=== PATIENT | female | born 1990 | race Caucasian/White ===

== ENCOUNTER 2017-06-18 19:29 | Inpatient (IN) | payer SELFPAY ==
[~2017-06-18] VITALS: Ht 160 cm; Wt 64.4 kg
[2017-06-18] MEDS ORDERED: methylPREDNISolone SOD SUCC 125 MG/2ML VIAL ONE (19:51)
[2017-06-18] MEDS ORDERED: diphenhydrAMINE HCL 50 MG/ML VIAL ONE (19:51)
[2017-06-18] MEDS ORDERED: FAMOTIDINE/PF INJ 20 MG/2 ML VIAL IV ONE ×2 (19:51→20:00)
[2017-06-18 19:53] LABS: BASOPHILS # (AUTO) 0.6 /CMM (0.0-0.2); BASOPHILS % (AUTO) 3.5 % (0.0-2.0); EOSINOPHILS # (AUTO) 0.1 /CMM (0.0-0.7); EOSINOPHILS % (AUTO) 0.4 % (0.0-6.0); HEMATOCRIT 42 % (33-45); HEMOGLOBIN 13.9 g/dL (11.5-14.8); LYMPHOCYTES # (AUTO) 0.7 /CMM (0.8-4.8); LYMPHOCYTES % (AUTO) 3.7 % (20.0-44.0); MEAN CORPUSCULAR HEMOGLOBIN 27 PG (26.0-33.0); MEAN CORPUSCULAR HGB CONC 33 g/dl (31.0-36.0); MEAN CORPUSCULAR VOLUME 81 fL (82-100); MONOCYTES # (AUTO) 0.6 /CMM (0.1-1.30); MONOCYTES % (AUTO) 3.5 % (2.0-12.0); NEUTROPHILS % (AUTO) 88.9 % (43.0-81.0); PLATELET COUNT (AUTO) 110 /CMM (150-450); RDW COEFFICIENT OF VARIATION 14.3 (11.5-15.0); RED BLOOD CELL COUNT(AUTO) 5.21 MIL/uL (4.0-5.2)
[2017-06-18] MEDS ORDERED: IV NS 0.9% 1,000 ML BAG IV ONE ×3 (20:00→22:00)
[2017-06-18] MEDS ORDERED: methylPREDNISolone SOD SUCC 125 MG/2ML VIAL IV ONE (20:00)
[2017-06-18] MEDS ORDERED: diphenhydrAMINE HCL 50 MG/ML VIAL IV ONE (20:00)
[2017-06-18 20:03] LABS: CALCIUM, SERUM 7.6 mg/dL (8.5-10.1); CREATININE 1.6 mg/dL (0.6-1.3); POTASSIUM 3.8 mmol/L (3.5-5.1)
[2017-06-18 20:42] LABS: ALBUMIN 2.4 g/dL (3.4-5.0); BILIRUBIN,DIRECT 0.4 mg/dL (0.0-0.2); BILIRUBIN,TOTAL 1.2 mg/dL (0.2-1.0); TOTAL PROTEIN, SERUM 6.8 g/dL (6.4-8.2)
[2017-06-18] MEDS ORDERED: PIPERACILLIN /TAZOBACTAM 3.375 G in IV D5W 50 ML IV ONE (21:00)
[2017-06-18] MEDS ORDERED: VANCOMYCIN 1 GM in IV D5W 250 ML IV ONE (21:00)
[2017-06-18] MEDS ORDERED: VANCOMYCIN 1 GM VIAL ONE (21:06)
[2017-06-18 21:07] LABS: BAND % (MANUAL) 19 % (0.0-5.0); EOSINOPHILS % (MANUAL) 1 % (0-4); LYMPHOCYTES % (MANUAL) 7 % (16-48); MONOCYTES % (MANUAL) 3 % (0-11.0); NEUTROPHILS % (MANUAL) 68 (42-76); REACTIVE LYMPHOCYTES 2 % (0-0)
[2017-06-18 21:15] LABS: APPEARANCE,URINE Slightly Cloudy (CLEAR); BILIRUBIN,URINE SMALL (NEGATIVE); BLOOD, URINE Trace-intact Ery/uL (NEGATIVE); COLOR,URINE Dark (YELLOW); KETONES,URINE Negative (NEGATIVE); LEUKOCYTE ESTERASE ,URINE Small (NEGATIVE); NITRITE, URINE Negative (NEGATIVE); PH,URINE 5.5 (5.0-8.0); PROTEIN,URINE 30 mg/dl (NEGATIVE); UGLUCOSE Negative (NEGATIVE)
[2017-06-18] MEDS ORDERED: CEFEPIME 1 GM in IV D5W 50 ML IV ONE (21:30)
[2017-06-18 21:36] LABS: BACTERIA,URINE Few /HPF (None Seen); SQUAMOUS EPITHELIAL CELL,UR Rare /HPF (None Seen)
[2017-06-18] MEDS ORDERED: IV NS 0.9% 1,000 ML IV PRN (21:44)
[2017-06-18] MEDS ORDERED: Z GUARD REMEDY 2 OZ OINT TP PRN (22:00)
[2017-06-18] MEDS ORDERED: MAGNESIUM HYDROXIDE 30 ML UDC PO PRN (22:00)
[2017-06-18] MEDS ORDERED: ONDANSETRON HCL/PF 4 MG/2 ML VIAL IVP PRN (22:00)
[2017-06-18] MEDS ORDERED: MAG HYDROX/AL HYDROX/SIMETH 30 ML UDC PO PRN (22:00)
[2017-06-18] MEDS ORDERED: CEFEPIME 1 GM VIAL ONE (22:14)
[2017-06-18 22:40] VITALS: BP 96/52
[2017-06-18] MEDS ORDERED: MORPHINE SULFATE INJ 2 MG/ML DISP.SYRIN ONE (23:01)
[2017-06-18] MEDS: MORPHINE SULFATE INJ 2 MG/ML DISP.SYRIN IV PRN (23:05)
[2017-06-19] VITALS: BP 90/52
[2017-06-19] MEDS ORDERED: IV NS 0.9% 500 ML IV ONE (03:00)
[2017-06-19 04:00] VITALS: BP 92/62
[2017-06-19] MEDS ORDERED: MORPHINE SULFATE INJ 2 MG/ML DISP.SYRIN ONE (05:20)
[2017-06-19] MEDS ORDERED: CEFEPIME 1 GM VIAL ONE (05:31)
[2017-06-19] MEDS: MORPHINE SULFATE INJ 2 MG/ML DISP.SYRIN IV PRN ×3 (05:36→20:22)
[2017-06-19] MEDS: CEFEPIME 2 GM in IV D5W 100 ML IV SCH ×3 (05:36→20:22)
[2017-06-19] MEDS: IV NS 0.9% 1,000 ML IV PRN ×2 (05:38→16:28)
[2017-06-19 06:34] LABS: HEMATOCRIT 30 % (33-45); LYMPHOCYTES # (AUTO) 0.8 /CMM (0.8-4.8); LYMPHOCYTES % (AUTO) 4.3 % (20.0-44.0); MEAN CORPUSCULAR HEMOGLOBIN 28 PG (26.0-33.0); MEAN CORPUSCULAR HGB CONC 34 g/dl (31.0-36.0); MEAN CORPUSCULAR VOLUME 82 fL (82-100); MONOCYTES # (AUTO) 0.5 /CMM (0.1-1.30); MONOCYTES % (AUTO) 2.6 % (2.0-12.0); NEUTROPHILS % (AUTO) 93.1 % (43.0-81.0); PLATELET COUNT (AUTO) 88 /CMM (150-450); RDW COEFFICIENT OF VARIATION 15.1 (11.5-15.0); RED BLOOD CELL COUNT(AUTO) 3.65 MIL/uL (4.0-5.2); WHITE BLOOD COUNT (AUTO) 18.3 K/uL (4.3-11.0)
[2017-06-19 07:01] LABS: ALBUMIN 1.8 g/dL (3.4-5.0); BILIRUBIN,TOTAL 0.5 mg/dL (0.2-1.0); CALCIUM, SERUM 7.1 mg/dL (8.5-10.1); CREATININE 0.9 mg/dL (0.6-1.3); MAGNESIUM 2.6 mg/dL (1.8-2.4); PHOSPHORUS 2.4 mg/dL (2.5-4.9); POTASSIUM 3.9 mmol/L (3.5-5.1); TOTAL PROTEIN, SERUM 5.5 g/dL (6.4-8.2)
[2017-06-19 07:03] LABS: THYROID STIMULATING HORMONE 0.287 uIU/mL (0.358-3.74)
[2017-06-19 08:00] VITALS: BP 84/55
[2017-06-19 08:35] LABS: BAND % (MANUAL) 25 % (0.0-5.0); LYMPHOCYTES % (MANUAL) 4 % (16-48); MONOCYTES % (MANUAL) 3 % (0-11.0); NEUTROPHILS % (MANUAL) 68 (42-76)
[2017-06-19] MEDS: PANTOPRAZOLE 40 MG TABLET.DR PO SCH (08:42)
[2017-06-19] MEDS: HYDROCODONE/APAP 5/325MG 1 EACH TABLET PO PRN ×2 (08:42→22:49)
[2017-06-19] MEDS ORDERED: FEE PK DOSING 1 MIN EA MC ONE (08:55)
[2017-06-19] MEDS: VANCOMYCIN 0.75 GM in IV D5W 250 ML IV SCH ×2 (11:23→16:28)
[2017-06-19 12:00] VITALS: BP 89/59
[2017-06-19 16:00] VITALS: BP 98/68
[2017-06-19] MEDS ORDERED: K PHOS NEUTRAL 250 MG TABLET PO ONE (16:00)
[2017-06-19 20:00] VITALS: BP 105/69
[2017-06-20] VITALS: BP 97/62
[2017-06-20] MEDS: LORAZEPAM INJ 2 MG/ML VIAL IV PRN ×3 (00:08→18:03)
[2017-06-20] MEDS: VANCOMYCIN 0.75 GM in IV D5W 250 ML IV SCH ×3 (00:18→17:08)
[2017-06-20] MEDS: MORPHINE SULFATE INJ 2 MG/ML DISP.SYRIN IV PRN ×3 (02:35→13:30)
[2017-06-20 04:00] VITALS: BP 111/73
[2017-06-20] MEDS: CEFEPIME 2 GM in IV D5W 100 ML IV SCH ×2 (05:02→13:25)
[2017-06-20] MEDS: HYDROCODONE/APAP 5/325MG 1 EACH TABLET PO PRN ×4 (05:02→20:56)
[2017-06-20] MEDS: IV NS 0.9% 1,000 ML IV PRN (05:03)
[2017-06-20 08:00] VITALS: BP 99/65
[2017-06-20] MEDS: PANTOPRAZOLE 40 MG TABLET.DR PO SCH (08:01)
[2017-06-20 08:09] LABS: HEMATOCRIT 27 % (33-45); HEMOGLOBIN 9.1 g/dL (11.5-14.8); LYMPHOCYTES # (AUTO) 1.3 /CMM (0.8-4.8); LYMPHOCYTES % (AUTO) 6.9 % (20.0-44.0); MEAN CORPUSCULAR HEMOGLOBIN 27 PG (26.0-33.0); MEAN CORPUSCULAR HGB CONC 33 g/dl (31.0-36.0); MEAN CORPUSCULAR VOLUME 82 fL (82-100); MONOCYTES # (AUTO) 0.5 /CMM (0.1-1.30); MONOCYTES % (AUTO) 2.4 % (2.0-12.0); NEUTROPHILS # (AUTO) 17.8 /CMM (1.8-8.9); NEUTROPHILS % (AUTO) 90.7 % (43.0-81.0); PLATELET COUNT (AUTO) 117 /CMM (150-450); RDW COEFFICIENT OF VARIATION 15.7 (11.5-15.0); RED BLOOD CELL COUNT(AUTO) 3.34 MIL/uL (4.0-5.2); WHITE BLOOD COUNT (AUTO) 19.6 K/uL (4.3-11.0)
[2017-06-20 08:23] LABS: CALCIUM, SERUM 7.1 mg/dL (8.5-10.1); CREATININE 0.8 mg/dL (0.6-1.3); PHOSPHORUS 2.6 mg/dL (2.5-4.9); POTASSIUM 4.1 mmol/L (3.5-5.1)
[2017-06-20 12:00] VITALS: BP_SYST 101; BP_DIAS 68; BP_DIAS 84
[2017-06-20] MEDS ORDERED: MORPHINE SULFATE INJ 2 MG/ML DISP.SYRIN IV PRN (15:30)
[2017-06-20] MEDS: MORPHINE SULFATE INJ 4 MG/ML DISP.SYRIN IV PRN ×2 (15:31→19:50)
[2017-06-20 16:00] VITALS: BP_SYST 102; BP_SYST 121; BP_DIAS 63; BP_DIAS 84
[2017-06-20 20:00] VITALS: BP 120/87
[2017-06-20] MEDS ORDERED: diphenhydrAMINE HCL 25 MG CAPSULE ONE (21:08)
[2017-06-20] MEDS: DIPHENHYDRAMINE HCL 12.5 MG/5 ML UDC PO PRN (21:16)
[2017-06-21] VITALS: BP 114/75
[2017-06-21] MEDS: LORAZEPAM INJ 2 MG/ML VIAL IV PRN ×3 (01:04→21:10)
[2017-06-21] MEDS: VANCOMYCIN 0.75 GM in IV D5W 250 ML IV SCH ×3 (01:04→16:45)
[2017-06-21] MEDS ORDERED: KEY,NONCONTROL,TO KEEP IN PYXI 1 EA MC ONE ×3 (01:35→01:45)
[2017-06-21] MEDS: HYDROCODONE/APAP 5/325MG 1 EACH TABLET PO PRN ×2 (01:38→18:46)
[2017-06-21] MEDS ORDERED: KETOROLAC TROMETHAMINE INJ 30 MG/ML VIAL ONE (02:09)
[2017-06-21] MEDS ORDERED: KETOROLAC TROMETHAMINE INJ 30 MG/ML VIAL IM ONE (02:30)
[2017-06-21 03:09] LABS: *NEISSERIA GONORRHOEAE NAA Negative (Negative)
[2017-06-21 04:00] VITALS: BP 122/75
[2017-06-21 04:09] LABS: CHLAMYDIA TRACHOMATIS NAA Positive (Negative)
[2017-06-21 08:00] VITALS: BP 131/77
[2017-06-21] MEDS: PANTOPRAZOLE 40 MG TABLET.DR PO SCH (09:10)
[2017-06-21] MEDS: MORPHINE SULFATE INJ 4 MG/ML DISP.SYRIN IV PRN ×4 (09:40→21:01)
[2017-06-21] MEDS ORDERED: FUROSEMIDE 20 MG/2 ML VIAL IV ONE (10:30)
[2017-06-21 10:41] LABS: CALCIUM, SERUM 7.3 mg/dL (8.5-10.1); CREATININE 0.8 mg/dL (0.6-1.3)
[2017-06-21] MEDS: ACETAMINOPHEN 325 MG TABLET PO PRN ×2 (11:14→20:58)
[2017-06-21 12:00] VITALS: BP_SYST 112; BP_DIAS 65; BP_DIAS 77
[2017-06-21 16:00] VITALS: BP 129/72
[2017-06-21 20:00] VITALS: BP 120/76
[2017-06-21] MEDS ORDERED: AZITHROMYCIN 250 MG TABLET PO ONE (21:00)
[2017-06-22] VITALS: BP 108/69
[2017-06-22] MEDS: VANCOMYCIN 0.75 GM in IV D5W 250 ML IV SCH ×3 (00:37→17:18)
[2017-06-22] MEDS: DIPHENHYDRAMINE HCL 12.5 MG/5 ML UDC PO PRN ×2 (00:41→08:54)
[2017-06-22] MEDS: HYDROCODONE/APAP 5/325MG 1 EACH TABLET PO PRN ×3 (00:41→20:24)
[2017-06-22] MEDS: MORPHINE SULFATE INJ 4 MG/ML DISP.SYRIN IV PRN ×5 (01:32→22:09)
[2017-06-22] MEDS: LORAZEPAM INJ 2 MG/ML VIAL IV PRN ×3 (03:33→20:25)
[2017-06-22 04:00] VITALS: BP 124/73
[2017-06-22] MEDS: ACETAMINOPHEN 325 MG TABLET PO PRN (06:26)
[2017-06-22 07:44] LABS: CALCIUM, SERUM 7.1 mg/dL (8.5-10.1); CREATININE 0.8 mg/dL (0.6-1.3); POTASSIUM 4.1 mmol/L (3.5-5.1)
[2017-06-22 08:00] VITALS: BP 119/76
[2017-06-22] MEDS: PANTOPRAZOLE 40 MG TABLET.DR PO SCH (08:47)
[2017-06-22 12:00] VITALS: BP 114/72
[2017-06-22 16:00] VITALS: BP 125/73
[2017-06-22] MEDS: NITROFURANTOIN/NITROFURAN MAC 100 MG CAPSULE PO SCH (17:19)
[2017-06-22 20:00] VITALS: BP 113/67
[2017-06-23] VITALS (7 sets, daily range): BP systolic 103–123; BP diastolic 65–76
[2017-06-23] MEDS: DIPHENHYDRAMINE HCL 12.5 MG/5 ML UDC PO PRN ×2 (00:02→14:39)
[2017-06-23] MEDS: ACETAMINOPHEN 325 MG TABLET PO PRN ×2 (00:03→21:43)
[2017-06-23] MEDS: VANCOMYCIN 0.75 GM in IV D5W 250 ML IV SCH ×2 (00:40→08:58)
[2017-06-23] MEDS: HYDROCODONE/APAP 5/325MG 1 EACH TABLET PO PRN ×3 (00:40→11:06)
[2017-06-23] MEDS: MORPHINE SULFATE INJ 4 MG/ML DISP.SYRIN IV PRN ×3 (04:23→19:53)
[2017-06-23] MEDS: LORAZEPAM INJ 2 MG/ML VIAL IV PRN ×2 (06:44→22:05)
[2017-06-23 07:04] LABS: BASOPHILS # (AUTO) 0.1 /CMM (0.0-0.2); BASOPHILS % (AUTO) 0.2 % (0.0-2.0); EOSINOPHILS # (AUTO) 0.4 /CMM (0.0-0.7); EOSINOPHILS % (AUTO) 1.8 % (0.0-6.0); HEMATOCRIT 31 % (33-45); HEMOGLOBIN 10.4 g/dL (11.5-14.8); LYMPHOCYTES # (AUTO) 3.1 /CMM (0.8-4.8); LYMPHOCYTES % (AUTO) 13.2 % (20.0-44.0); MEAN CORPUSCULAR HEMOGLOBIN 27 PG (26.0-33.0); MEAN CORPUSCULAR HGB CONC 34 g/dl (31.0-36.0); MEAN CORPUSCULAR VOLUME 81 fL (82-100); MONOCYTES # (AUTO) 1.2 /CMM (0.1-1.30); MONOCYTES % (AUTO) 5.2 % (2.0-12.0); NEUTROPHILS # (AUTO) 18.4 /CMM (1.8-8.9); NEUTROPHILS % (AUTO) 79.6 % (43.0-81.0); PLATELET COUNT (AUTO) 181 /CMM (150-450); RDW COEFFICIENT OF VARIATION 15.4 (11.5-15.0); RED BLOOD CELL COUNT(AUTO) 3.84 MIL/uL (4.0-5.2); WHITE BLOOD COUNT (AUTO) 23.1 K/uL (4.3-11.0)
[2017-06-23 07:11] LABS: CALCIUM, SERUM 7.6 mg/dL (8.5-10.1); CREATININE 0.8 mg/dL (0.6-1.3); POTASSIUM 4.5 mmol/L (3.5-5.1)
[2017-06-23] MEDS: NITROFURANTOIN/NITROFURAN MAC 100 MG CAPSULE PO SCH ×2 (08:57→20:54)
[2017-06-23] MEDS: PANTOPRAZOLE 40 MG TABLET.DR PO SCH (08:57)
[2017-06-23] MEDS: CLONIDINE HCL 0.3 MG/24H PTWK 1 EA PATCH TD SCH (14:39)
[2017-06-23] MEDS: METHADONE HCL 10 MG TABLET PO SCH (15:50)
[2017-06-23] MEDS: VANCOMYCIN 1 GM in IV D5W 250 ML IV SCH (16:05)
[2017-06-23] MEDS: OLANZAPINE 5 MG TABLET PO SCH (16:35)
[2017-06-23] MEDS: DIVALPROEX SODIUM 500 MG TABLET.DR PO SCH (16:35)
[2017-06-23 17:02] LABS: APPEARANCE,URINE CLEAR (CLEAR); BILIRUBIN,URINE NEGATIVE (NEGATIVE); BLOOD, URINE NEGATIVE Ery/uL (NEGATIVE); COLOR,URINE YELLOW (YELLOW); KETONES,URINE NEGATIVE (NEGATIVE); LEUKOCYTE ESTERASE ,URINE NEGATIVE (NEGATIVE); NITRITE, URINE NEGATIVE (NEGATIVE); PROTEIN,URINE NEGATIVE (NEGATIVE); UGLUCOSE NEGATIVE (NEGATIVE)
[2017-06-23 17:21] LABS: BACTERIA,URINE None seen /HPF (None Seen); RBC,URINE NONE SEEN /HPF (0-2); SQUAMOUS EPITHELIAL CELL,UR Few /HPF (None Seen); WBC,URINE 0-2 /HPF (0-3)
[2017-06-24] VITALS: BP 100/64
[2017-06-24] MEDS: VANCOMYCIN 1 GM in IV D5W 250 ML IV SCH ×3 (01:14→16:20)
[2017-06-24] MEDS: MORPHINE SULFATE INJ 4 MG/ML DISP.SYRIN IV PRN ×2 (02:41→18:28)
[2017-06-24 04:00] VITALS: BP 102/67
[2017-06-24] MEDS: ACETAMINOPHEN 325 MG TABLET PO PRN ×2 (04:40→18:46)
[2017-06-24] MEDS ORDERED: IBUPROFEN 600 MG TABLET PO ONE (06:42)
[2017-06-24 06:59] LABS: CALCIUM, SERUM 7.8 mg/dL (8.5-10.1); CREATININE 0.9 mg/dL (0.6-1.3); POTASSIUM 4.6 mmol/L (3.5-5.1)
[2017-06-24] MEDS ORDERED: IBUPROFEN 400 MG TABLET PO PRN (07:00)
[2017-06-24 08:00] VITALS: BP 97/77
[2017-06-24] MEDS: DIVALPROEX SODIUM 500 MG TABLET.DR PO SCH ×2 (08:33→16:19)
[2017-06-24] MEDS: OLANZAPINE 5 MG TABLET PO SCH ×2 (08:34→16:19)
[2017-06-24] MEDS: NITROFURANTOIN/NITROFURAN MAC 100 MG CAPSULE PO SCH ×2 (08:34→22:12)
[2017-06-24] MEDS: METHADONE HCL 10 MG TABLET PO SCH (08:34)
[2017-06-24] MEDS: PANTOPRAZOLE 40 MG TABLET.DR PO SCH (08:35)
[2017-06-24 12:00] VITALS: BP 96/64
[2017-06-24 16:00] VITALS: BP 100/66
[2017-06-24 18:58] LABS: APPEARANCE,URINE CLEAR (CLEAR); BILIRUBIN,URINE NEGATIVE (NEGATIVE); BLOOD, URINE NEGATIVE Ery/uL (NEGATIVE); COLOR,URINE YELLOW (YELLOW); KETONES,URINE NEGATIVE (NEGATIVE); LEUKOCYTE ESTERASE ,URINE NEGATIVE (NEGATIVE); NITRITE, URINE NEGATIVE (NEGATIVE); PROTEIN,URINE NEGATIVE (NEGATIVE); UGLUCOSE NEGATIVE (NEGATIVE); UROBILINOGEN,URINE 0.2 EU/dL (0.2)
[2017-06-24 20:00] VITALS: BP 94/58
[2017-06-24] MEDS ORDERED: VANCOMYCIN HCL 125 MG/2.5 ML ORAL.SUSP PO SCH (21:00)
[2017-06-24] MEDS ORDERED: AZTREONAM 2 G in IV NS 0.9% 100 ML IV SCH (21:00)
[2017-06-24] MEDS ORDERED: MEROPENEM 500 MG VIAL IV ONE ×2 (21:07)
[2017-06-24] MEDS: FLUCONAZOLE IN NS,PREMIX 400 MG in PREMIX 1 EA IV SCH ×2 (22:09)
[2017-06-24] MEDS: MEROPENEM 500 MG in IV NS 0.9% 50 ML IV SCH (22:12)
[2017-06-24] MEDS: IBUPROFEN 400 MG TABLET PO PRN (22:33)
[2017-06-25] VITALS: BP 97/72
[2017-06-25] MEDS: VANCOMYCIN 1 GM in IV D5W 250 ML IV SCH ×3 (00:03→16:51)
[2017-06-25] MEDS: MORPHINE SULFATE INJ 4 MG/ML DISP.SYRIN IV PRN ×3 (00:12→16:51)
[2017-06-25 01:23] LABS: BILIRUBIN,DIRECT 0.1 mg/dL (0.0-0.2); BILIRUBIN,TOTAL 0.4 mg/dL (0.2-1.0)
[2017-06-25 04:00] VITALS: BP 87/63
[2017-06-25] MEDS: MEROPENEM 500 MG in IV NS 0.9% 50 ML IV SCH ×3 (05:56→21:40)
[2017-06-25 08:00] VITALS: BP 99/63
[2017-06-25 08:45] LABS: CALCIUM, SERUM 8.2 mg/dL (8.5-10.1); CREATININE 0.8 mg/dL (0.6-1.3); POTASSIUM 4.4 mmol/L (3.5-5.1)
[2017-06-25] MEDS: PANTOPRAZOLE 40 MG TABLET.DR PO SCH (09:27)
[2017-06-25] MEDS: NITROFURANTOIN/NITROFURAN MAC 100 MG CAPSULE PO SCH ×2 (09:27→20:25)
[2017-06-25] MEDS: OLANZAPINE 5 MG TABLET PO SCH ×2 (09:28→16:52)
[2017-06-25] MEDS: DIVALPROEX SODIUM 500 MG TABLET.DR PO SCH ×2 (09:28→16:52)
[2017-06-25] MEDS: METHADONE HCL 10 MG TABLET PO SCH (09:28)
[2017-06-25 12:00] VITALS: BP 87/63
[2017-06-25 16:00] VITALS: BP 93/59
[2017-06-25] MEDS: LORAZEPAM INJ 2 MG/ML VIAL IV PRN (18:50)
[2017-06-25 20:00] VITALS: BP 94/57
[2017-06-25] MEDS: FLUCONAZOLE IN NS,PREMIX 400 MG in PREMIX 1 EA IV SCH ×2 (20:25)
[2017-06-25] MEDS: ACETAMINOPHEN 325 MG TABLET PO PRN (20:26)
[2017-06-26] VITALS: BP 85/54
[2017-06-26] MEDS: VANCOMYCIN 1 GM in IV D5W 250 ML IV SCH ×3 (00:04→16:42)
[2017-06-26] MEDS: MORPHINE SULFATE INJ 4 MG/ML DISP.SYRIN IV PRN (00:33)
[2017-06-26] MEDS: IBUPROFEN 400 MG TABLET PO PRN (03:55)
[2017-06-26 04:00] VITALS: BP 91/55
[2017-06-26] MEDS: MEROPENEM 500 MG in IV NS 0.9% 50 ML IV SCH ×3 (04:54→21:27)
[2017-06-26] MEDS: ACETAMINOPHEN 325 MG TABLET PO PRN ×2 (06:11→20:50)
[2017-06-26 08:00] VITALS: BP 91/55
[2017-06-26] MEDS: NITROFURANTOIN/NITROFURAN MAC 100 MG CAPSULE PO SCH (08:08)
[2017-06-26] MEDS: DIVALPROEX SODIUM 500 MG TABLET.DR PO SCH ×2 (08:08→16:43)
[2017-06-26] MEDS: OLANZAPINE 5 MG TABLET PO SCH ×2 (08:08→16:43)
[2017-06-26] MEDS: PANTOPRAZOLE 40 MG TABLET.DR PO SCH (08:08)
[2017-06-26] MEDS: METHADONE HCL 10 MG TABLET PO SCH (08:09)
[2017-06-26 10:53] LABS: BASOPHILS # (AUTO) 0.1 /CMM (0.0-0.2); BASOPHILS % (AUTO) 0.5 % (0.0-2.0); EOSINOPHILS # (AUTO) 0.2 /CMM (0.0-0.7); EOSINOPHILS % (AUTO) 1.9 % (0.0-6.0); HEMATOCRIT 27 % (33-45); HEMOGLOBIN 8.9 g/dL (11.5-14.8); LYMPHOCYTES # (AUTO) 2.2 /CMM (0.8-4.8); LYMPHOCYTES % (AUTO) 16.8 % (20.0-44.0); MEAN CORPUSCULAR HEMOGLOBIN 27 PG (26.0-33.0); MEAN CORPUSCULAR HGB CONC 33 g/dl (31.0-36.0); MEAN CORPUSCULAR VOLUME 80 fL (82-100); MONOCYTES # (AUTO) 0.7 /CMM (0.1-1.30); MONOCYTES % (AUTO) 5.6 % (2.0-12.0); NEUTROPHILS # (AUTO) 9.6 /CMM (1.8-8.9); NEUTROPHILS % (AUTO) 75.2 % (43.0-81.0); PLATELET COUNT (AUTO) 227 /CMM (150-450); RED BLOOD CELL COUNT(AUTO) 3.31 MIL/uL (4.0-5.2); WHITE BLOOD COUNT (AUTO) 12.8 K/uL (4.3-11.0)
[2017-06-26 11:05] LABS: CALCIUM, SERUM 7.9 mg/dL (8.5-10.1); CREATININE 0.9 mg/dL (0.6-1.3); POTASSIUM 3.8 mmol/L (3.5-5.1)
[2017-06-26 12:00] VITALS: BP 90/60
[2017-06-26 16:00] VITALS: BP 94/50
[2017-06-26] MEDS: LORAZEPAM INJ 2 MG/ML VIAL IV PRN ×2 (16:10→22:10)
[2017-06-26 20:00] VITALS: BP 104/69
[2017-06-26] MEDS: FLUCONAZOLE IN NS,PREMIX 400 MG in PREMIX 1 EA IV SCH ×2 (20:50)
[2017-06-27] VITALS (7 sets, daily range): BP systolic 88–102; BP diastolic 50–71
[2017-06-27] MEDS: VANCOMYCIN 1 GM in IV D5W 250 ML IV SCH ×3 (01:47→16:40)
[2017-06-27] MEDS: LORAZEPAM INJ 2 MG/ML VIAL IV PRN ×2 (04:19→20:14)
[2017-06-27] MEDS: IBUPROFEN 400 MG TABLET PO PRN (04:20)
[2017-06-27] MEDS: MEROPENEM 500 MG in IV NS 0.9% 50 ML IV SCH ×3 (04:28→20:14)
[2017-06-27] MEDS: METHADONE HCL 10 MG TABLET PO SCH (08:08)
[2017-06-27] MEDS: OLANZAPINE 5 MG TABLET PO SCH ×2 (08:08→16:40)
[2017-06-27] MEDS: DIVALPROEX SODIUM 500 MG TABLET.DR PO SCH ×2 (08:08→16:40)
[2017-06-27] MEDS: PANTOPRAZOLE 40 MG TABLET.DR PO SCH (08:08)
[2017-06-27 10:40] LABS: BASOPHILS % (AUTO) 0.4 % (0.0-2.0); EOSINOPHILS # (AUTO) 0.2 /CMM (0.0-0.7); HEMATOCRIT 28 % (33-45); HEMOGLOBIN 9.3 g/dL (11.5-14.8); LYMPHOCYTES # (AUTO) 1.5 /CMM (0.8-4.8); LYMPHOCYTES % (AUTO) 15.3 % (20.0-44.0); MEAN CORPUSCULAR HEMOGLOBIN 27 PG (26.0-33.0); MEAN CORPUSCULAR HGB CONC 33 g/dl (31.0-36.0); MEAN CORPUSCULAR VOLUME 80 fL (82-100); MONOCYTES # (AUTO) 0.7 /CMM (0.1-1.30); MONOCYTES % (AUTO) 6.8 % (2.0-12.0); NEUTROPHILS # (AUTO) 7.2 /CMM (1.8-8.9); NEUTROPHILS % (AUTO) 75.5 % (43.0-81.0); PLATELET COUNT (AUTO) 246 /CMM (150-450); RDW COEFFICIENT OF VARIATION 15.4 (11.5-15.0); RED BLOOD CELL COUNT(AUTO) 3.45 MIL/uL (4.0-5.2); WHITE BLOOD COUNT (AUTO) 9.6 K/uL (4.3-11.0)
[2017-06-27 10:50] LABS: CALCIUM, SERUM 7.8 mg/dL (8.5-10.1); CREATININE 0.9 mg/dL (0.6-1.3); POTASSIUM 4.1 mmol/L (3.5-5.1)
[2017-06-27 15:09] LABS: APPEARANCE,URINE CLEAR (CLEAR); BILIRUBIN,URINE NEGATIVE (NEGATIVE); BLOOD, URINE NEGATIVE Ery/uL (NEGATIVE); COLOR,URINE YELLOW (YELLOW); KETONES,URINE NEGATIVE (NEGATIVE); PROTEIN,URINE NEGATIVE (NEGATIVE); UGLUCOSE NEGATIVE (NEGATIVE)
[2017-06-27 15:10] LABS: LEUKOCYTE ESTERASE ,URINE NEGATIVE (NEGATIVE); NITRITE, URINE NEGATIVE (NEGATIVE); UROBILINOGEN,URINE 0.2 EU/dL (0.2)
[2017-06-28] VITALS (7 sets, daily range): BP systolic 89–104; BP diastolic 55–62
[2017-06-28] MEDS: IBUPROFEN 400 MG TABLET PO PRN ×2 (00:20→12:39)
[2017-06-28] MEDS: VANCOMYCIN 1 GM in IV D5W 250 ML IV SCH ×3 (00:21→17:11)
[2017-06-28] MEDS: MEROPENEM 500 MG in IV NS 0.9% 50 ML IV SCH ×3 (04:54→21:13)
[2017-06-28 08:34] LABS: BASOPHILS % (AUTO) 0.5 % (0.0-2.0); EOSINOPHILS # (AUTO) 0.1 /CMM (0.0-0.7); EOSINOPHILS % (AUTO) 1.6 % (0.0-6.0); HEMATOCRIT 30 % (33-45); HEMOGLOBIN 10.1 g/dL (11.5-14.8); LYMPHOCYTES # (AUTO) 1.5 /CMM (0.8-4.8); LYMPHOCYTES % (AUTO) 16.7 % (20.0-44.0); MEAN CORPUSCULAR HEMOGLOBIN 27 PG (26.0-33.0); MEAN CORPUSCULAR HGB CONC 33 g/dl (31.0-36.0); MEAN CORPUSCULAR VOLUME 80 fL (82-100); MONOCYTES # (AUTO) 0.7 /CMM (0.1-1.30); MONOCYTES % (AUTO) 7.9 % (2.0-12.0); NEUTROPHILS # (AUTO) 6.7 /CMM (1.8-8.9); NEUTROPHILS % (AUTO) 73.3 % (43.0-81.0); PLATELET COUNT (AUTO) 259 /CMM (150-450); RDW COEFFICIENT OF VARIATION 15.1 (11.5-15.0); WHITE BLOOD COUNT (AUTO) 9.1 K/uL (4.3-11.0)
[2017-06-28 08:38] LABS: CALCIUM, SERUM 7.8 mg/dL (8.5-10.1); CREATININE 0.9 mg/dL (0.6-1.3); POTASSIUM 3.7 mmol/L (3.5-5.1)
[2017-06-28] MEDS: DIVALPROEX SODIUM 500 MG TABLET.DR PO SCH ×2 (08:52→17:11)
[2017-06-28] MEDS: OLANZAPINE 5 MG TABLET PO SCH ×2 (08:52→17:11)
[2017-06-28] MEDS: PANTOPRAZOLE 40 MG TABLET.DR PO SCH (08:52)
[2017-06-28] MEDS: METHADONE HCL 10 MG TABLET PO SCH (08:53)
[2017-06-28] MEDS: LORAZEPAM INJ 2 MG/ML VIAL IV PRN ×2 (12:39→22:21)
[2017-06-28] MEDS: ACETAMINOPHEN 325 MG TABLET PO PRN (22:18)
[2017-06-29] VITALS: BP 96/61
[2017-06-29] MEDS: VANCOMYCIN 1 GM in IV D5W 250 ML IV SCH ×3 (00:24→16:58)
[2017-06-29] MEDS: IBUPROFEN 400 MG TABLET PO PRN ×2 (01:54→12:03)
[2017-06-29] MEDS ORDERED: diphenhydrAMINE HCL 25 MG CAPSULE PO PRN (03:30)
[2017-06-29 04:00] VITALS: BP 90/45
[2017-06-29] MEDS: LORAZEPAM INJ 2 MG/ML VIAL IV PRN ×3 (04:51→21:31)
[2017-06-29] MEDS: ACETAMINOPHEN 325 MG TABLET PO PRN (04:52)
[2017-06-29] MEDS: MEROPENEM 500 MG in IV NS 0.9% 50 ML IV SCH ×2 (05:09→12:03)
[2017-06-29 07:26] LABS: BASOPHILS % (AUTO) 0.2 % (0.0-2.0); EOSINOPHILS # (AUTO) 0.1 /CMM (0.0-0.7); EOSINOPHILS % (AUTO) 2.3 % (0.0-6.0); HEMATOCRIT 27 % (33-45); LYMPHOCYTES # (AUTO) 1.2 /CMM (0.8-4.8); LYMPHOCYTES % (AUTO) 19.2 % (20.0-44.0); MEAN CORPUSCULAR HEMOGLOBIN 27 PG (26.0-33.0); MEAN CORPUSCULAR HGB CONC 34 g/dl (31.0-36.0); MEAN CORPUSCULAR VOLUME 79 fL (82-100); MONOCYTES # (AUTO) 0.4 /CMM (0.1-1.30); MONOCYTES % (AUTO) 6.8 % (2.0-12.0); NEUTROPHILS # (AUTO) 4.6 /CMM (1.8-8.9); NEUTROPHILS % (AUTO) 71.5 % (43.0-81.0); PLATELET COUNT (AUTO) 272 /CMM (150-450); RED BLOOD CELL COUNT(AUTO) 3.37 MIL/uL (4.0-5.2); WHITE BLOOD COUNT (AUTO) 6.5 K/uL (4.3-11.0)
[2017-06-29 07:43] LABS: CALCIUM, SERUM 7.6 mg/dL (8.5-10.1); CREATININE 0.8 mg/dL (0.6-1.3); POTASSIUM 4.1 mmol/L (3.5-5.1)
[2017-06-29 08:00] VITALS: BP 84/50
[2017-06-29] MEDS: OLANZAPINE 5 MG TABLET PO SCH ×2 (09:14→16:57)
[2017-06-29] MEDS: DIVALPROEX SODIUM 500 MG TABLET.DR PO SCH ×2 (09:15→16:57)
[2017-06-29] MEDS: METHADONE HCL 10 MG TABLET PO SCH (09:15)
[2017-06-29] MEDS: PANTOPRAZOLE 40 MG TABLET.DR PO SCH (09:20)
[2017-06-29 12:00] VITALS: BP 104/55
[2017-06-29 16:00] VITALS: BP_SYST 100; BP_SYST 165; BP_DIAS 52; BP_DIAS 77
[2017-06-29 20:00] VITALS: BP 95/59
[2017-06-30] VITALS: BP 112/45
[2017-06-30] MEDS: ACETAMINOPHEN 325 MG TABLET PO PRN ×2 (00:40→15:58)
[2017-06-30] MEDS: VANCOMYCIN 1 GM in IV D5W 250 ML IV SCH ×3 (00:40→16:05)
[2017-06-30 04:00] VITALS: BP 103/62
[2017-06-30] MEDS: IBUPROFEN 400 MG TABLET PO PRN ×3 (04:25→17:27)
[2017-06-30] MEDS: LORAZEPAM INJ 2 MG/ML VIAL IV PRN (04:25)
[2017-06-30 08:00] VITALS: BP 91/52
[2017-06-30 08:24] LABS: BASOPHILS % (AUTO) 0.3 % (0.0-2.0); EOSINOPHILS # (AUTO) 0.1 /CMM (0.0-0.7); EOSINOPHILS % (AUTO) 1.9 % (0.0-6.0); HEMATOCRIT 26 % (33-45); HEMOGLOBIN 8.6 g/dL (11.5-14.8); LYMPHOCYTES # (AUTO) 1.2 /CMM (0.8-4.8); LYMPHOCYTES % (AUTO) 18.7 % (20.0-44.0); MEAN CORPUSCULAR HEMOGLOBIN 26 PG (26.0-33.0); MEAN CORPUSCULAR HGB CONC 33 g/dl (31.0-36.0); MEAN CORPUSCULAR VOLUME 79 fL (82-100); MONOCYTES # (AUTO) 0.3 /CMM (0.1-1.30); MONOCYTES % (AUTO) 5.2 % (2.0-12.0); NEUTROPHILS # (AUTO) 4.7 /CMM (1.8-8.9); NEUTROPHILS % (AUTO) 73.9 % (43.0-81.0); PLATELET COUNT (AUTO) 294 /CMM (150-450); RED BLOOD CELL COUNT(AUTO) 3.27 MIL/uL (4.0-5.2); WHITE BLOOD COUNT (AUTO) 6.3 K/uL (4.3-11.0)
[2017-06-30] MEDS: PANTOPRAZOLE 40 MG TABLET.DR PO SCH (08:26)
[2017-06-30] MEDS: OLANZAPINE 5 MG TABLET PO SCH ×2 (08:27→16:05)
[2017-06-30] MEDS: DIVALPROEX SODIUM 500 MG TABLET.DR PO SCH ×2 (08:27→16:05)
[2017-06-30] MEDS: METHADONE HCL 10 MG TABLET PO SCH (08:31)
[2017-06-30 08:48] LABS: CALCIUM, SERUM 7.5 mg/dL (8.5-10.1); CREATININE 0.8 mg/dL (0.6-1.3); POTASSIUM 4.5 mmol/L (3.5-5.1)
[2017-06-30 12:00] VITALS: BP 91/45
[2017-06-30] MEDS: CLONIDINE HCL 0.3 MG/24H PTWK 1 EA PATCH TD SCH (12:21)
[2017-06-30 16:00] VITALS: BP 103/41
[2017-06-30 20:00] VITALS: BP 83/47
[2017-06-30] MEDS: oxyCODONE HCL SR 10MG TAB.SR.12H PO SCH (21:00)
[2017-07-01] VITALS (7 sets, daily range): BP systolic 82–105; BP diastolic 43–58
[2017-07-01] MEDS: VANCOMYCIN 1 GM in IV D5W 250 ML IV SCH ×3 (00:20→17:24)
[2017-07-01] MEDS: LORAZEPAM INJ 2 MG/ML VIAL IV PRN ×2 (05:50→21:16)
[2017-07-01 06:47] LABS: BASOPHILS % (AUTO) 0.4 % (0.0-2.0); EOSINOPHILS # (AUTO) 0.1 /CMM (0.0-0.7); EOSINOPHILS % (AUTO) 2.1 % (0.0-6.0); HEMATOCRIT 25 % (33-45); HEMOGLOBIN 8.2 g/dL (11.5-14.8); LYMPHOCYTES # (AUTO) 0.5 /CMM (0.8-4.8); LYMPHOCYTES % (AUTO) 11.3 % (20.0-44.0); MEAN CORPUSCULAR HEMOGLOBIN 27 PG (26.0-33.0); MEAN CORPUSCULAR HGB CONC 34 g/dl (31.0-36.0); MEAN CORPUSCULAR VOLUME 80 fL (82-100); MONOCYTES # (AUTO) 0.1 /CMM (0.1-1.30); MONOCYTES % (AUTO) 3.3 % (2.0-12.0); NEUTROPHILS # (AUTO) 3.7 /CMM (1.8-8.9); NEUTROPHILS % (AUTO) 82.9 % (43.0-81.0); PLATELET COUNT (AUTO) 245 /CMM (150-450); RDW COEFFICIENT OF VARIATION 15.6 (11.5-15.0); RED BLOOD CELL COUNT(AUTO) 3.07 MIL/uL (4.0-5.2); WHITE BLOOD COUNT (AUTO) 4.4 K/uL (4.3-11.0)
[2017-07-01 07:44] LABS: CALCIUM, SERUM 7.4 mg/dL (8.5-10.1); CREATININE 0.8 mg/dL (0.6-1.3); POTASSIUM 4.7 mmol/L (3.5-5.1)
[2017-07-01] MEDS: IBUPROFEN 400 MG TABLET PO PRN (07:51)
[2017-07-01] MEDS: PANTOPRAZOLE 40 MG TABLET.DR PO SCH (07:51)
[2017-07-01] MEDS: ACETAMINOPHEN 325 MG TABLET PO PRN (08:28)
[2017-07-01] MEDS: OLANZAPINE 5 MG TABLET PO SCH ×2 (08:28→17:24)
[2017-07-01] MEDS: DIVALPROEX SODIUM 500 MG TABLET.DR PO SCH ×2 (08:28→17:24)
[2017-07-01] MEDS: oxyCODONE HCL SR 10MG TAB.SR.12H PO SCH ×2 (09:37→20:27)
[2017-07-01 10:01] LABS: BAND % (MANUAL) 4 % (0.0-5.0); LYMPHOCYTES % (MANUAL) 14 % (16-48); MONOCYTES % (MANUAL) 2 % (0-11.0); NEUTROPHILS % (MANUAL) 78 (42-76)
[2017-07-01 10:02] LABS: EOSINOPHILS % (MANUAL) 2 % (0-4)
[2017-07-01 18:20] LABS: APPEARANCE,URINE CLEAR (CLEAR); BILIRUBIN,URINE NEGATIVE (NEGATIVE); BLOOD, URINE NEGATIVE Ery/uL (NEGATIVE); COLOR,URINE YELLOW (YELLOW); KETONES,URINE NEGATIVE (NEGATIVE); LEUKOCYTE ESTERASE ,URINE NEGATIVE (NEGATIVE); NITRITE, URINE NEGATIVE (NEGATIVE); PH,URINE 5.5 (5.0-8.0); PROTEIN,URINE NEGATIVE (NEGATIVE); UGLUCOSE NEGATIVE (NEGATIVE); UROBILINOGEN,URINE 0.2 EU/dL (0.2)
[2017-07-02] VITALS: BP 88/49
[2017-07-02] MEDS: IBUPROFEN 400 MG TABLET PO PRN ×2 (00:09→18:37)
[2017-07-02] MEDS: VANCOMYCIN 1 GM in IV D5W 250 ML IV SCH ×3 (00:09→21:04)
[2017-07-02 04:00] VITALS: BP 104/48
[2017-07-02 08:00] VITALS: BP 93/49
[2017-07-02 08:22] LABS: BASOPHILS % (AUTO) 0.5 % (0.0-2.0); EOSINOPHILS # (AUTO) 0.1 /CMM (0.0-0.7); EOSINOPHILS % (AUTO) 3.3 % (0.0-6.0); HEMATOCRIT 26 % (33-45); HEMOGLOBIN 8.8 g/dL (11.5-14.8); LYMPHOCYTES # (AUTO) 0.8 /CMM (0.8-4.8); LYMPHOCYTES % (AUTO) 26.2 % (20.0-44.0); MEAN CORPUSCULAR HEMOGLOBIN 26 PG (26.0-33.0); MEAN CORPUSCULAR HGB CONC 34 g/dl (31.0-36.0); MEAN CORPUSCULAR VOLUME 79 fL (82-100); MONOCYTES # (AUTO) 0.2 /CMM (0.1-1.30); MONOCYTES % (AUTO) 6.1 % (2.0-12.0); NEUTROPHILS # (AUTO) 2.1 /CMM (1.8-8.9); NEUTROPHILS % (AUTO) 63.9 % (43.0-81.0); PLATELET COUNT (AUTO) 254 /CMM (150-450); RDW COEFFICIENT OF VARIATION 15.1 (11.5-15.0); RED BLOOD CELL COUNT(AUTO) 3.33 MIL/uL (4.0-5.2); WHITE BLOOD COUNT (AUTO) 3.2 K/uL (4.3-11.0)
[2017-07-02 08:26] LABS: CALCIUM, SERUM 8.1 mg/dL (8.5-10.1); CREATININE 0.7 mg/dL (0.6-1.3); POTASSIUM 3.6 mmol/L (3.5-5.1)
[2017-07-02] MEDS: DIVALPROEX SODIUM 500 MG TABLET.DR PO SCH ×2 (08:26→16:32)
[2017-07-02] MEDS: PANTOPRAZOLE 40 MG TABLET.DR PO SCH (08:26)
[2017-07-02] MEDS: OLANZAPINE 5 MG TABLET PO SCH ×2 (08:27→16:32)
[2017-07-02] MEDS: oxyCODONE HCL SR 10MG TAB.SR.12H PO SCH ×2 (08:27→21:03)
[2017-07-02 12:00] VITALS: BP 111/69
[2017-07-02 16:00] VITALS: BP 96/59
[2017-07-02] MEDS: ACETAMINOPHEN 325 MG TABLET PO PRN (16:32)
[2017-07-02 20:00] VITALS: BP 99/50
[2017-07-02] MEDS: LORAZEPAM INJ 2 MG/ML VIAL IV PRN (22:10)
[2017-07-03] VITALS: BP 86/45
[2017-07-03 04:00] VITALS: BP 84/58
[2017-07-03] MEDS: ACETAMINOPHEN 325 MG TABLET PO PRN ×2 (07:05→16:16)
[2017-07-03 08:00] VITALS: BP 98/66
[2017-07-03 08:13] LABS: BASOPHILS % (AUTO) 0.3 % (0.0-2.0); EOSINOPHILS # (AUTO) 0.2 /CMM (0.0-0.7); EOSINOPHILS % (AUTO) 4.4 % (0.0-6.0); HEMATOCRIT 25 % (33-45); HEMOGLOBIN 8.4 g/dL (11.5-14.8); LYMPHOCYTES % (AUTO) 28.9 % (20.0-44.0); MEAN CORPUSCULAR HEMOGLOBIN 27 PG (26.0-33.0); MEAN CORPUSCULAR HGB CONC 33 g/dl (31.0-36.0); MEAN CORPUSCULAR VOLUME 80 fL (82-100); MONOCYTES # (AUTO) 0.3 /CMM (0.1-1.30); MONOCYTES % (AUTO) 8.4 % (2.0-12.0); NEUTROPHILS # (AUTO) 2.1 /CMM (1.8-8.9); PLATELET COUNT (AUTO) 263 /CMM (150-450); RDW COEFFICIENT OF VARIATION 15.1 (11.5-15.0); RED BLOOD CELL COUNT(AUTO) 3.17 MIL/uL (4.0-5.2); WHITE BLOOD COUNT (AUTO) 3.6 K/uL (4.3-11.0)
[2017-07-03 08:23] LABS: CALCIUM, SERUM 7.9 mg/dL (8.5-10.1); CREATININE 0.7 mg/dL (0.6-1.3); POTASSIUM 3.8 mmol/L (3.5-5.1)
[2017-07-03] MEDS: DIVALPROEX SODIUM 500 MG TABLET.DR PO SCH ×2 (08:33→16:01)
[2017-07-03] MEDS: PANTOPRAZOLE 40 MG TABLET.DR PO SCH (08:33)
[2017-07-03] MEDS: VANCOMYCIN 1 GM in IV D5W 250 ML IV SCH ×2 (08:33→21:33)
[2017-07-03] MEDS: OLANZAPINE 5 MG TABLET PO SCH ×2 (08:33→16:01)
[2017-07-03] MEDS: oxyCODONE HCL SR 10MG TAB.SR.12H PO SCH ×2 (08:34→21:35)
[2017-07-03] MEDS: LORAZEPAM INJ 2 MG/ML VIAL IV PRN ×3 (08:34→23:02)
[2017-07-03 16:00] VITALS: BP_SYST 93; BP_DIAS 49; BP_DIAS 59
[2017-07-03] MEDS: BOOST PLUS FOOD-VANILLA 237 ML BOX PO SCH (17:00)
[2017-07-03 20:00] VITALS: BP 92/56
[2017-07-04] VITALS: BP 91/55
[2017-07-04 04:00] VITALS: BP 90/62
[2017-07-04] MEDS: ACETAMINOPHEN 325 MG TABLET PO PRN ×2 (04:13→20:09)
[2017-07-04] MEDS: LORAZEPAM INJ 2 MG/ML VIAL IV PRN ×3 (06:21→23:00)
[2017-07-04 06:57] LABS: BASOPHILS % (AUTO) 0.2 % (0.0-2.0); EOSINOPHILS # (AUTO) 0.1 /CMM (0.0-0.7); EOSINOPHILS % (AUTO) 3.6 % (0.0-6.0); HEMATOCRIT 24 % (33-45); HEMOGLOBIN 8.3 g/dL (11.5-14.8); LYMPHOCYTES # (AUTO) 1.1 /CMM (0.8-4.8); LYMPHOCYTES % (AUTO) 34.2 % (20.0-44.0); MEAN CORPUSCULAR HEMOGLOBIN 27 PG (26.0-33.0); MEAN CORPUSCULAR HGB CONC 34 g/dl (31.0-36.0); MEAN CORPUSCULAR VOLUME 79 fL (82-100); MONOCYTES # (AUTO) 0.3 /CMM (0.1-1.30); MONOCYTES % (AUTO) 10.2 % (2.0-12.0); NEUTROPHILS # (AUTO) 1.7 /CMM (1.8-8.9); NEUTROPHILS % (AUTO) 51.8 % (43.0-81.0); PLATELET COUNT (AUTO) 220 /CMM (150-450); RED BLOOD CELL COUNT(AUTO) 3.09 MIL/uL (4.0-5.2); WHITE BLOOD COUNT (AUTO) 3.2 K/uL (4.3-11.0)
[2017-07-04 07:29] LABS: CALCIUM, SERUM 7.7 mg/dL (8.5-10.1); CREATININE 0.9 mg/dL (0.6-1.3)
[2017-07-04 08:00] VITALS: BP_SYST 87; BP_SYST 91; BP_DIAS 57; BP_DIAS 58
[2017-07-04] MEDS: DIVALPROEX SODIUM 500 MG TABLET.DR PO SCH ×2 (08:19→16:03)
[2017-07-04] MEDS: BOOST PLUS FOOD-VANILLA 237 ML BOX PO SCH ×3 (08:19→16:02)
[2017-07-04] MEDS: PANTOPRAZOLE 40 MG TABLET.DR PO SCH (08:19)
[2017-07-04] MEDS: OLANZAPINE 5 MG TABLET PO SCH ×2 (08:21→16:03)
[2017-07-04] MEDS: VANCOMYCIN 1 GM in IV D5W 250 ML IV SCH (09:09)
[2017-07-04] MEDS: oxyCODONE HCL SR 10MG TAB.SR.12H PO SCH ×2 (09:15→20:43)
[2017-07-04 12:00] VITALS: BP 91/60
[2017-07-04 16:00] VITALS: BP 96/66
[2017-07-04] MEDS: VANCOMYCIN 0.75 GM in IV D5W 250 ML IV SCH ×2 (16:22→23:25)
[2017-07-04 20:00] VITALS: BP 100/51
[2017-07-05] VITALS: BP 91/56
[2017-07-05] MEDS: IBUPROFEN 400 MG TABLET PO PRN (02:54)
[2017-07-05 04:00] VITALS: BP 96/93
[2017-07-05] MEDS: VANCOMYCIN 0.75 GM in IV D5W 250 ML IV SCH ×3 (05:05→21:05)
[2017-07-05 06:50] LABS: BASOPHILS % (AUTO) 0.4 % (0.0-2.0); EOSINOPHILS # (AUTO) 0.1 /CMM (0.0-0.7); EOSINOPHILS % (AUTO) 3.1 % (0.0-6.0); HEMATOCRIT 25 % (33-45); HEMOGLOBIN 8.4 g/dL (11.5-14.8); LYMPHOCYTES # (AUTO) 0.7 /CMM (0.8-4.8); LYMPHOCYTES % (AUTO) 15.1 % (20.0-44.0); MEAN CORPUSCULAR HEMOGLOBIN 27 PG (26.0-33.0); MEAN CORPUSCULAR HGB CONC 34 g/dl (31.0-36.0); MEAN CORPUSCULAR VOLUME 79 fL (82-100); MONOCYTES # (AUTO) 0.1 /CMM (0.1-1.30); MONOCYTES % (AUTO) 2.6 % (2.0-12.0); NEUTROPHILS # (AUTO) 3.5 /CMM (1.8-8.9); NEUTROPHILS % (AUTO) 78.8 % (43.0-81.0); PLATELET COUNT (AUTO) 214 /CMM (150-450); RDW COEFFICIENT OF VARIATION 15.1 (11.5-15.0); RED BLOOD CELL COUNT(AUTO) 3.14 MIL/uL (4.0-5.2); WHITE BLOOD COUNT (AUTO) 4.4 K/uL (4.3-11.0)
[2017-07-05 07:00] LABS: CALCIUM, SERUM 7.9 mg/dL (8.5-10.1); CREATININE 0.9 mg/dL (0.6-1.3); PHOSPHORUS 4.5 mg/dL (2.5-4.9)
[2017-07-05 07:07] LABS: POTASSIUM 3.8 mmol/L (3.5-5.1)
[2017-07-05 08:00] VITALS: BP 86/56
[2017-07-05] MEDS: BOOST PLUS FOOD-VANILLA 237 ML BOX PO SCH ×3 (08:19→17:00)
[2017-07-05] MEDS: DIVALPROEX SODIUM 500 MG TABLET.DR PO SCH ×2 (08:23→17:08)
[2017-07-05] MEDS: PANTOPRAZOLE 40 MG TABLET.DR PO SCH (08:23)
[2017-07-05] MEDS: oxyCODONE HCL SR 10MG TAB.SR.12H PO SCH ×3 (08:24→21:08)
[2017-07-05] MEDS: OLANZAPINE 5 MG TABLET PO SCH ×2 (08:24→17:09)
[2017-07-05 12:00] VITALS: BP 95/57
[2017-07-05 16:00] VITALS: BP 98/56
[2017-07-05] MEDS: ACETAMINOPHEN 325 MG TABLET PO PRN (17:08)
[2017-07-05 20:00] VITALS: BP 89/45
[2017-07-06] VITALS (8 sets, daily range): BP systolic 90–101; BP diastolic 38–68
[2017-07-06] MEDS: IBUPROFEN 400 MG TABLET PO PRN ×2 (02:25→16:51)
[2017-07-06] MEDS: VANCOMYCIN 0.75 GM in IV D5W 250 ML IV SCH ×3 (05:57→21:22)
[2017-07-06 08:28] LABS: BASOPHILS % (AUTO) 0.3 % (0.0-2.0); EOSINOPHILS # (AUTO) 0.1 /CMM (0.0-0.7); EOSINOPHILS % (AUTO) 3.3 % (0.0-6.0); HEMATOCRIT 26 % (33-45); HEMOGLOBIN 8.6 g/dL (11.5-14.8); LYMPHOCYTES # (AUTO) 0.7 /CMM (0.8-4.8); LYMPHOCYTES % (AUTO) 18.2 % (20.0-44.0); MEAN CORPUSCULAR HEMOGLOBIN 26 PG (26.0-33.0); MEAN CORPUSCULAR HGB CONC 34 g/dl (31.0-36.0); MEAN CORPUSCULAR VOLUME 78 fL (82-100); MONOCYTES # (AUTO) 0.4 /CMM (0.1-1.30); MONOCYTES % (AUTO) 10.2 % (2.0-12.0); NEUTROPHILS # (AUTO) 2.6 /CMM (1.8-8.9); PLATELET COUNT (AUTO) 218 /CMM (150-450); RDW COEFFICIENT OF VARIATION 15.2 (11.5-15.0); RED BLOOD CELL COUNT(AUTO) 3.27 MIL/uL (4.0-5.2); WHITE BLOOD COUNT (AUTO) 3.8 K/uL (4.3-11.0)
[2017-07-06] MEDS: BOOST PLUS FOOD-VANILLA 237 ML BOX PO SCH ×3 (08:28→16:49)
[2017-07-06 08:31] LABS: CALCIUM, SERUM 8.1 mg/dL (8.5-10.1); CREATININE 0.8 mg/dL (0.6-1.3); POTASSIUM 3.9 mmol/L (3.5-5.1)
[2017-07-06] MEDS: OLANZAPINE 5 MG TABLET PO SCH ×2 (08:32→16:50)
[2017-07-06] MEDS: DIVALPROEX SODIUM 500 MG TABLET.DR PO SCH ×2 (10:27→16:50)
[2017-07-06] MEDS: PANTOPRAZOLE 40 MG TABLET.DR PO SCH (10:27)
[2017-07-06] MEDS: oxyCODONE HCL SR 10MG TAB.SR.12H PO SCH ×2 (10:28→20:37)
[2017-07-07] VITALS: BP_SYST 86; BP_SYST 96; BP_DIAS 47
[2017-07-07 04:00] VITALS: BP_SYST 84; BP_SYST 89; BP_DIAS 54
[2017-07-07] MEDS: VANCOMYCIN 0.75 GM in IV D5W 250 ML IV SCH ×3 (04:33→21:33)
[2017-07-07] MEDS: IBUPROFEN 400 MG TABLET PO PRN ×3 (04:34→21:33)
[2017-07-07 07:52] LABS: CALCIUM, SERUM 7.7 mg/dL (8.5-10.1); CREATININE 0.8 mg/dL (0.6-1.3); POTASSIUM 3.7 mmol/L (3.5-5.1)
[2017-07-07 08:00] VITALS: BP 102/62
[2017-07-07] MEDS: PANTOPRAZOLE 40 MG TABLET.DR PO SCH (08:17)
[2017-07-07] MEDS: DIVALPROEX SODIUM 500 MG TABLET.DR PO SCH ×2 (08:18→16:56)
[2017-07-07] MEDS: oxyCODONE HCL SR 10MG TAB.SR.12H PO SCH ×2 (08:19→21:33)
[2017-07-07] MEDS: OLANZAPINE 5 MG TABLET PO SCH ×2 (08:19→16:56)
[2017-07-07] MEDS: BOOST PLUS FOOD-VANILLA 237 ML BOX PO SCH ×3 (09:21→16:56)
[2017-07-07 12:00] VITALS: BP 118/65
[2017-07-07] MEDS: CLONIDINE HCL 0.3 MG/24H PTWK 1 EA PATCH TD SCH (12:24)
[2017-07-07 16:00] VITALS: BP 96/40
[2017-07-07 20:00] VITALS: BP 94/51
[2017-07-08] VITALS (7 sets, daily range): BP systolic 83–101; BP diastolic 54–67
[2017-07-08] MEDS: IBUPROFEN 400 MG TABLET PO PRN ×2 (05:40→19:35)
[2017-07-08] MEDS: VANCOMYCIN 0.75 GM in IV D5W 250 ML IV SCH ×4 (05:40→21:15)
[2017-07-08 06:36] LABS: CALCIUM, SERUM 8.1 mg/dL (8.5-10.1); CREATININE 0.8 mg/dL (0.6-1.3); POTASSIUM 4.2 mmol/L (3.5-5.1)
[2017-07-08] MEDS: ACETAMINOPHEN 325 MG TABLET PO PRN (06:43)
[2017-07-08] MEDS: PANTOPRAZOLE 40 MG TABLET.DR PO SCH (06:43)
[2017-07-08] MEDS: BOOST PLUS FOOD-VANILLA 237 ML BOX PO SCH ×3 (08:16→16:36)
[2017-07-08] MEDS: DIVALPROEX SODIUM 500 MG TABLET.DR PO SCH ×2 (08:16→16:36)
[2017-07-08] MEDS: OLANZAPINE 5 MG TABLET PO SCH ×2 (08:16→16:36)
[2017-07-08] MEDS: oxyCODONE HCL SR 10MG TAB.SR.12H PO SCH ×2 (08:16→21:11)
[2017-07-09] VITALS (7 sets, daily range): BP systolic 83–104; BP diastolic 51–69
[2017-07-09] MEDS: VANCOMYCIN 0.75 GM in IV D5W 250 ML IV SCH ×3 (05:06→20:34)
[2017-07-09] MEDS ORDERED: IV NS 0.9% 250 ML IV PRN (06:30)
[2017-07-09] MEDS: oxyCODONE HCL SR 10MG TAB.SR.12H PO SCH ×2 (08:30→20:34)
[2017-07-09] MEDS: BOOST PLUS FOOD-VANILLA 237 ML BOX PO SCH ×3 (08:30→17:00)
[2017-07-09] MEDS: PANTOPRAZOLE 40 MG TABLET.DR PO SCH (08:30)
[2017-07-09] MEDS: OLANZAPINE 5 MG TABLET PO SCH ×2 (08:32→17:00)
[2017-07-09] MEDS: DIVALPROEX SODIUM 500 MG TABLET.DR PO SCH ×2 (08:32→17:00)
[2017-07-09] MEDS: IBUPROFEN 400 MG TABLET PO PRN (10:54)
[2017-07-09 11:35] LABS: CALCIUM, SERUM 7.8 mg/dL (8.5-10.1); CREATININE 0.7 mg/dL (0.6-1.3); POTASSIUM 4.3 mmol/L (3.5-5.1)
[2017-07-10 00:16] LABS: APPEARANCE,URINE CLEAR (CLEAR); BILIRUBIN,URINE NEGATIVE (NEGATIVE); BLOOD, URINE NEGATIVE Ery/uL (NEGATIVE); COLOR,URINE YELLOW (YELLOW); KETONES,URINE NEGATIVE (NEGATIVE); LEUKOCYTE ESTERASE ,URINE NEGATIVE (NEGATIVE); NITRITE, URINE NEGATIVE (NEGATIVE); PROTEIN,URINE NEGATIVE (NEGATIVE); UGLUCOSE NEGATIVE (NEGATIVE); UROBILINOGEN,URINE 0.2 EU/dL (0.2)
[2017-07-10 04:00] VITALS: BP 98/54
[2017-07-10] MEDS: VANCOMYCIN 0.75 GM in IV D5W 250 ML IV SCH ×2 (04:16→14:12)
[2017-07-10] MEDS: IBUPROFEN 400 MG TABLET PO PRN (04:16)
[2017-07-10 07:33] LABS: CALCIUM, SERUM 7.9 mg/dL (8.5-10.1); CREATININE 0.9 mg/dL (0.6-1.3)
[2017-07-10 08:00] VITALS: BP 87/49
[2017-07-10] MEDS: PANTOPRAZOLE 40 MG TABLET.DR PO SCH (08:37)
[2017-07-10] MEDS: BOOST PLUS FOOD-VANILLA 237 ML BOX PO SCH ×2 (08:37→13:00)
[2017-07-10] MEDS: DIVALPROEX SODIUM 500 MG TABLET.DR PO SCH (09:00)
[2017-07-10] MEDS: OLANZAPINE 5 MG TABLET PO SCH (09:00)
[2017-07-10] MEDS: oxyCODONE HCL SR 10MG TAB.SR.12H PO SCH (10:15)
== END 2017-07-10 17:03 | disposition left against medical advice (07) | DRG 871 ==
LOC: ER 19:31 → TELE-TD 21:56 → TELE1 06-23 10:18 → MEDSG1 07-09 10:29
PROVIDERS: ADMIT Nurse Practitioner Acute Care; ATTEND Nurse Practitioner Acute Care
PROC: 05H533Z Insertion of Infusion Device into Right Subclavian Vein, Percutaneous Approach (ICD-10-PCS; principal; 2017-06-19)
DX: A41.01 Sepsis due to Methicillin susceptible Staphylococcus aureus (principal); E43 Unspecified severe protein-calorie malnutrition; N17.0 Acute kidney failure with tubular necrosis; I33.0 Acute and subacute infective endocarditis; E87.2 Acidosis; D69.6 Thrombocytopenia, unspecified; I07.1 Rheumatic tricuspid insufficiency; N39.0 Urinary tract infection, site not specified; F31.60 Bipolar disorder, current episode mixed, unspecified; B96.89 Other specified bacterial agents as the cause of diseases classified elsewhere; R65.20 Severe sepsis without septic shock; Z88.1 Allergy status to other antibiotic agents; Z88.0 Allergy status to penicillin; E78.5 Hyperlipidemia, unspecified; D64.9 Anemia, unspecified; E78.1 Pure hyperglyceridemia; M13.0 Polyarthritis, unspecified; J45.909 Unspecified asthma, uncomplicated; Z59.0 Homelessness; Z79.899 Other long term (current) drug therapy; Z80.0 Family history of malignant neoplasm of digestive organs; Z81.8 Family history of other mental and behavioral disorders; Z82.3 Family history of stroke; Z82.49 Family history of ischemic heart disease and other diseases of the circulatory system; Z95.2 Presence of prosthetic heart valve; B18.2 Chronic viral hepatitis C; Z72.0 Tobacco use; F19.90 Other psychoactive substance use, unspecified, uncomplicated; R16.2 Hepatomegaly with splenomegaly, not elsewhere classified; A56.01 Chlamydial cystitis and urethritis; B95.62 Methicillin resistant Staphylococcus aureus infection as the cause of diseases classified elsewhere; B96.20 Unspecified Escherichia coli [E. coli] as the cause of diseases classified elsewhere; M25.531 Pain in right wrist
CPT/HCPCS: 36415; 36569; 71010-TC; 73110; 73521; 73560-TC; 76700-TC; 80048-TC; 80053-TC; 80061-TC; 80074; 80076-TC; 80202-TC; 81000-TC; 82247-TC; 82248-TC; 82550-TC; 83605-TC; 83690-TC; 83735-TC; 84100-TC; 84443-TC; 85025-TC; 85652-TC; 86140-TC; 87040-TC; 87045-TC; 87070-TC; 87081-TC; 87086-TC; 87186-TC; 87491; 87591; 93307-TC; 97001-TC; 97110-TC; 97530-TC; A4216; A4606; J0692; J1200; J1450; J1885; J1940; J2060; J2185; J2270; J2543; J2930; J3370; J3490; J7030; J7040; J7050; J7060; Q0163; Z7610